=== PATIENT | male | born 1980 | race Caucasian/White ===

== ENCOUNTER 2016-10-09 18:18 | Emergency (ER) | payer BC ==
[2016-10-09] MEDS ORDERED: Proparacaine 0.5% Ophth Soln 15 ML Bottle ONE (18:24)
[2016-10-09] MEDS ORDERED: Proparacaine 0.5% Ophth Soln 15 ML Bottle EYERT STA (18:25)
--- NOTE | 2016-10-09 18:30 | EDM.PDOC ---
ED HPI GENERAL MEDICAL PROBLEM - General Chief Complaint: Eye Problems Stated Complaint: PAIN RT EYE Time Seen by Provider: 10/09/16 18:27 - History of Present Illness INITIAL COMMENTS - FREE TEXT/NARRATIVE: HISTORY AND PHYSICAL: History of present illness: Patient 36-year-old white male presents with concern of irritation and redness to his right eye he states he developed this earlier he has contact lenses he did remove his contact lenses and did flush his eye he states he still is irritation and is concerned for possible foreign body. There was no foreign body history or any direct trauma to his eye Review of systems: As per history of present illness and below otherwise all systems reviewed and negative. Past medical history: As per history of present illness and as reviewed below otherwise noncontributory. Surgical history: As per history of present illness and as reviewed below otherwise noncontributory. Social history: No reported history of drug or alcohol abuse. Family history: As per history of present illness and as reviewed below otherwise noncontributory. Physical exam: HEENT: Atraumatic, normocephalic, pupils reactive, conjunctiva is injected staining of his eye does have forcing uptake in the bulbar conjunctiva inferiorly foreign body search including lid eversion was negative anterior chambers clear negative for conjunctival pallor or scleral icterus, mucous membranes moist, throat clear, neck supple, nontender, trachea midline. Lungs: Clear to auscultation, breath sounds equal bilaterally, chest nontender. Heart: S1S2, regular, negative for clicks, rubs, or JVD. Abdomen: Soft, nondistended, nontender. Negative for masses or hepatosplenomegaly. Negative for costovertebral tenderness. Pelvis: Stable nontender. Genitourinary: Deferred. Rectal: Deferred. Extremities: Atraumatic, negative for cords or calf pain. Neurovascular unremarkable. Neuro: Awake, alert, oriented. Cranial nerves II through XII unremarkable. Cerebellum unremarkable. Motor and sensory unremarkable throughout. Exam nonfocal. Diagnostics: Corneal staining Therapeutics: Irrigation proparacaine erythromycin ophthalmic ointment Impression: #1 conjunctivitis Definitive disposition and diagnosis as appropriate pending reevaluation and review of above. - Related Data Allergies Allergy/AdvReac Type Severity Reaction Status Date / Time No Known Allergies Allergy Verified 01/16/14 10:26 Home Meds: Home Meds . [No Known Home Meds] 01/16/14 [History] Past Medical History - Past Health History Medical/Surgical History: Denies Medical/Surgical History Social & Family History - Tobacco Use Smoking Status *Q: Current Every Day Smoker Years of Tobacco use: 15 - Alcohol Use Days Per Week of Alcohol Use: 3 Number of Drinks Per Day: 5 Total Drinks Per Week: 15 - Recreational Drug Use Recreational Drug Use: No ED ROS GENERAL - Review of Systems Review Of Systems: ROS reveals no pertinent complaints other than HPI. ED EXAM GENERAL W FULL EYE - Physical Exam Exam: See Below (See dictation) Course - Orders/Labs/Meds Meds: Medications Discontinued Medications Generic Name Dose Route Start Last Admin Trade Name Freamy PRN Reason Stop Dose Admin Proparacaine HCl 1 ml 10/09/16 18:25 Proparacaine 0.5% Ophth Soln EYERT 10/09/16 18:26 NOW STA Departure - Departure Time of Disposition: 18:29 Disposition: Home, Self-Care 01 Condition: Good Clinical Impression: Conjunctivitis - Discharge Information Referrals: PCP,None [Primary Care Provider] - Additional Instructions: The following information is given to patients seen in the emergency department who are being discharged to home. This information is to outline your options for follow-up care. We provide all patients seen in our emergency department with a follow-up referral. The need for follow-up, as well as the timing and circumstances, are variable depending upon the specifics of your emergency department visit. If you don't have a primary care physician on staff, we will provide you with a referral. We always advise you to contact your personal physician following an emergency department visit to inform them of the circumstance of the visit and for follow-up with them and/or the need for any referrals to a consulting specialist. The emergency department will also refer you to a specialist when appropriate. This referral assures that you have the opportunity for followup care with a specialist. All of these measure are taken in an effort to provide you with optimal care, which includes your followup. Under all circumstances we always encourage you to contact your private physician who remains a resource for coordinating your care. When calling for followup care, please make the office aware that this follow-up is from your recent emergency room visit. If for any reason you are refused follow-up, please contact the [facility] emergency department at and asked to speak to the emergency department charge nurse. Erythromycin ophthalmic ointment as prescribed no contact lenses as discussed until resolution and ophthalmology follow-up follow-up private medical doctor/ ophthalmology 24-48 hours as needed as discussed and return as needed as discussed
[2016-10-09] MEDS ORDERED: Erythromycin Base 0.5% Ophth Oint 1 GM Tube EYERT ONE (18:31)
[2016-10-09 18:35] VITALS: BP 131/82
== END 2016-10-09 18:48 | disposition home or self-care (01) ==
LOC: MW.ED 18:18
DX: H10.9 Unspecified conjunctivitis (principal); F17.200 Nicotine dependence, unspecified, uncomplicated
CPT/HCPCS: 99283; A9270; 99282

== ENCOUNTER 2016-11-30 16:22 | Emergency (ER) | payer BC ==
[2016-11-30 16:40] VITALS: BP 135/84
[2016-11-30] MEDS ORDERED: Lidocaine 1% 20 ML MDV INJECT ONE (16:46)
--- NOTE | 2016-11-30 16:50 | EDM.PDOC ---
ED HPI GENERAL MEDICAL PROBLEM - General Chief Complaint: Laceration Stated Complaint: LACERATION LIP Time Seen by Provider: 11/30/16 16:41 Source of Information: Reports: Patient History Limitations: Reports: No Limitations - History of Present Illness INITIAL COMMENTS - FREE TEXT/NARRATIVE: HISTORY AND PHYSICAL: History of present illness: Patient is a 36 -year-old male who presents to the emergency room with complaints of laceration to the left upper lip. Patient was pulling on a hose and it flung back and hit him in the mouth is eating a 0.6 cm laceration to the left upper lip that barely crosses the [place] border. Patient states he also has the tooth but is unable to wiggle it with his tongue. Denies any loss of consciousness. T Benoit was updated 2 years ago Review of systems: As per history of present illness and below otherwise all systems reviewed and negative. Past medical history: As per history of present illness and as reviewed below otherwise noncontributory. Surgical history: As per history of present illness and as reviewed below otherwise noncontributory. Social history: No reported history of drug or alcohol abuse. Family history: As per history of present illness and as reviewed below otherwise noncontributory. Physical exam: Gen.: Well-developed and well-nourished 36-year-old male. Able to speak in full sentences without shortness of breath. Alert and oriented HEENT: Atraumatic, normocephalic, pupils reactive, negative for conjunctival pallor or scleral icterus, mucous membranes moist, all teeth intact, throat clear, neck supple, nontender, trachea midline. Lungs: Clear to auscultation, breath sounds equal bilaterally, chest nontender. Heart: S1S2, regular, negative for clicks, rubs, or JVD. Abdomen: Soft, nondistended, nontender. Negative for masses or hepatosplenomegaly. Negative for costovertebral tenderness. Pelvis: Stable nontender. Genitourinary: Deferred. Rectal: Deferred. Skin: 0.6 laceration to left upper lip which barely crosses the [place] border. No current bleeding noted. No other abrasions or skin imperfections noted to the face. Extremities: Atraumatic, negative for cords or calf pain. Neurovascular unremarkable. Neuro: Awake, alert, oriented. Cranial nerves II through XII unremarkable. Cerebellum unremarkable. Motor and sensory unremarkable throughout. Exam nonfocal. Diagnostics: [] Therapeutics: Lidocaine, 5-0 Vicryl P-3 was used, #1 stitch completed Impression: Lip laceration Plan: 1. Please take your antibiotic as prescribed. Monitor for signs of infection as we discussed. Take Tylenol and/or ibuprofen as needed for pain management. 2. The stitch will dissolve on its own over the next couple days. Please do not chew or tug on the thread. 3. Follow-up with your primary care provider in the next 1-2 days area and return to the ED as needed as discussed Definitive disposition and diagnosis as appropriate pending reevaluation and review of above. Onset: Today Left Upper Lip Pain Score (Numeric/FACES): 2 - Related Data Allergies Allergy/AdvReac Type Severity Reaction Status Date / Time No Known Allergies Allergy Verified 01/16/14 10:26 Home Meds: Home Meds . [No Known Home Meds] 01/16/14 [History] Past Medical History - Past Health History Medical/Surgical History: Denies Medical/Surgical History - Past Surgical History Other Musculoskeletal Surgeries/Procedures:: Right wrist pain with fracture Social & Family History - Family History Family Medical History: Noncontributory - Tobacco Use Smoking Status *Q: Current Every Day Smoker Years of Tobacco use: 15 Packs/Tins Daily: 1 Second Hand Smoke Exposure: Yes - Caffeine Use Caffeine Use: Reports: Coffee - Alcohol Use Days Per Week of Alcohol Use: 3 Number of Drinks Per Day: 5 Total Drinks Per Week: 15 - Recreational Drug Use Recreational Drug Use: No ED ROS GENERAL - Review of Systems Review Of Systems: ROS reveals no pertinent complaints other than HPI. ED EXAM, SKIN/RASH Exam: See Below Course - Vital Signs Last Recorded V/S: Last Vital Signs Temp 36.3 C 11/30/16 16:38 Pulse 87 11/30/16 16:38 Resp 18 11/30/16 16:38 BP 135/84 11/30/16 16:38 Pulse Ox 97 11/30/16 16:38 - Orders/Labs/Meds Meds: Medications Discontinued Medications Generic Name Dose Route Start Last Admin Trade Name Freq PRN Reason Stop Dose Admin Lidocaine HCl 20 ml 11/30/16 16:46 Xylocaine 1% INJECT 11/30/16 16:47 ONETIME ONE Departure - Departure Time of Disposition: 17:05 Disposition: Home, Self-Care 01 Condition: Good Clinical Impression: Lip laceration Qualifiers: Encounter type: initial encounter Qualified Code(s): S01.511A - Laceration without foreign body of lip, initial encounter - Discharge Information Referrals: PCP,None [Primary Care Provider] - Forms: ED Department Discharge Additional Instructions: My general discharge The following information is given to patients seen in the emergency department who are being discharged to home. This information is to outline your options for follow-up care. We provide all patients seen in our emergency department with a follow-up referral. The need for follow-up, as well as the timing and circumstances, are variable depending upon the specifics of your emergency department visit. If you don't have a primary care physician on staff, we will provide you with a referral. We always advise you to contact your personal physician following an emergency department visit to inform them of the circumstance of the visit and for follow-up with them and/or the need for any referrals to a consulting specialist. The emergency department will also refer you to a specialist when appropriate. This referral assures that you have the opportunity for follow-up care with a specialist. All of these measure are taken in an effort to provide you with optimal care, which includes your follow-up. Under all circumstances we always encourage you to contact your private physician who remains a resource for coordinating your care. When calling for follow-up care, please make the office aware that this follow-up is from your recent emergency room visit. If for any reason you are refused follow-up, please contact the [facility] Emergency Department at and asked to speak to the emergency department charge nurse. [facility] [address] [place] [id number] 1. Please take your antibiotic as prescribed ([facility]). Monitor for signs of infection as we discussed. Take Tylenol and/or ibuprofen as needed for pain management. 2. The stitch will dissolve on its own over the next couple days. Please do not chew or tug on the thread. 3. Follow-up with your primary care provider in the next 1-2 days area and return to the ED as needed as discussed
== END 2016-11-30 17:14 | disposition home or self-care (01) ==
LOC: MW.ED 16:22
DX: S01.511A Laceration without foreign body of lip, initial encounter (principal); W22.8XXA Striking against or struck by other objects, initial encounter
CPT/HCPCS: 12011; 99282; 99283

== ENCOUNTER 2019-03-08 18:31 | Observation (INO) | payer OTHER ==
[2019-03-08] MEDS ORDERED: HYDROmorphone 1 MG/ML Syringe IVPUSH ONE ×2 (19:00→21:01)
[2019-03-08 19:16] LABS: BLOOD UREA NITROGEN,BUN 15 mg/dL (7.0-18.0); CARBON DIOXIDE,CO2 27.3 mmol/L (21.0-32.0); CHLORIDE,CL 103 mmol/L (98-107); GLUCOSE RANDOM 110 mg/dL (74-106); POTASSIUM,K 3.5 mmol/L (3.5-5.1); SODIUM,NA 142 mmol/L (136-148)
--- NOTE | 2019-03-08 19:31 | CR ---
Pelvis: AP view of the pelvis was obtained. Comparison: No previous pelvis study. Mild joint space narrowing is seen within the superior right hip. Detached superior acetabular lip is noted on the left side which is old and a normal variant. Sacroiliac joints are unremarkable. No discrete fracture or other abnormality is appreciated. Impression: 1. Mild joint space narrowing with right hip. 2. Nothing acute is seen on AP pelvis study. Diagnostic code #2 This report was dictated in [place] Standard Time
--- NOTE | 2019-03-08 19:31 | CR ---
Lumbar spine: Crosstable lateral view of the lumbar spine were obtained. Mild posterior disc space narrowing at L4-5 and L5-S1. Other disc spaces are grossly maintained. Vertebral body heights are maintained. No abnormal subluxation is appreciated. Impression: 1. Posterior disc space narrowing. 2. No abnormal subluxation is seen on crosstable lateral view. Diagnostic code #2 This report was dictated in [place] Standard Time
[2019-03-08] MEDS ORDERED: Iopamidol 755 MG/ML 200 ML Multipack Bottle IVPUSH ONE (19:34)
--- NOTE | 2019-03-08 20:11 | CT ---
CT abdomen and pelvis Technique: Multiple axial sections were obtained from above the dome of the diaphragm inferiorly through the pubic symphysis. Intravenous contrast was utilized. No oral contrast has been given. Comparison: No prior CT abdomen or pelvis study. Findings: Visualized lung bases show nothing acute. Liver contains no focal abnormality. Spleen appears within normal limits. Adrenal glands show no nodule. Pancreas is within normal limits. Kidneys show symmetric contrast enhancement without abnormality. Gallbladder contains no calcified gallstones. Aorta shows no aneurysm. No retroperitoneal adenopathy or mesenteric abnormalities are seen. Mild increased density is noted along the right side of the pelvis compatible with mild intrapelvic hematoma from adjacent pelvic fractures which will be described below. No additional pelvic abnormality is seen. Bone window settings were reviewed. Fracture is identified within the superior pubic ramus on the right side near the acetabulum which is minimally displaced. Inferior pubic ramus fracture on the right side which is minimally displaced. Fracture also noted within the right side of the sacrum near the sacroiliac joint. Fracture also noted within the posterior iliac bone along the posterior sacroiliac joint which is slightly comminuted but nondisplaced. No left-sided pelvic fracture is seen. No discrete fracture within the lumbar spine is noted. Impression: 1. Fracture within the superior right pubic ramus near the acetabulum. Fracture also noted within the inferior right pubic ramus. Minimal displacement noted. 2. Fracture within the right side of the sacrum near the the sacroiliac joint. 3. Fracture within the iliac bone along the posterior sacroiliac joint which is slightly comminuted but nondisplaced. 4. Mild intrapelvic hematoma on the right side. 5. No additional abnormality is seen on CT study of the abdomen and pelvis. Note: When comparing CT study to previous AP pelvis study the inferior and superior pubic rami fractures are seen in retrospect but other fractures around the right sacroiliac joint are not well seen even in retrospect. Diagnostic code #3 Study was dictated in [place] Standard Time
[2019-03-08] MEDS ORDERED: ceFAZolin 1 GM in Premix Bag 1 BAG IV ONE (21:09)
[2019-03-08] MEDS: Lactated Ringers 1,000 ML IV SCH (21:45)
[2019-03-08] MEDS ORDERED: Morphine 10 MG/ML Syringe IVPUSH PRN (21:51)
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
[2019-03-08] MEDS: Cyclobenzaprine 10 MG Tab PO SCH (23:04)
[2019-03-09] MEDS: Acetaminophen/HYDROcodone 325-5 MG Tab PO PRN ×2 (02:08→08:46)
[2019-03-09] MEDS: Lactated Ringers 1,000 ML IV SCH (03:53)
[2019-03-09 05:53] LABS: BLOOD UREA NITROGEN,BUN 13 mg/dL (7.0-18.0); CARBON DIOXIDE,CO2 27.1 mmol/L (21.0-32.0); CHLORIDE,CL 106 mmol/L (98-107); GLUCOSE RANDOM 108 mg/dL (74-106); POTASSIUM,K 3.4 mmol/L (3.5-5.1); SODIUM,NA 141 mmol/L (136-148)
[2019-03-09] MEDS: Cyclobenzaprine 10 MG Tab PO SCH (06:04)
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
[2019-03-09 08:07] VITALS: BP 126/72; PULSE 85
[2019-03-09] MEDS ORDERED: FLU Vacc QS2019-20(6MOS+)/PF 60 MCG/0.5 ML SYRINGE IM ONE (10:00)
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
== END 2019-03-09 11:15 | disposition home or self-care (01) ==
LOC: MW.ED 18:31 → MW.MS 22:04
PROVIDERS: ADMIT Surgery; ATTEND Surgery
DX: S32.592A Other specified fracture of left pubis, initial encounter for closed fracture (principal); S32.591A Other specified fracture of right pubis, initial encounter for closed fracture; N50.1 Vascular disorders of male genital organs; K21.9 Gastro-esophageal reflux disease without esophagitis; F17.210 Nicotine dependence, cigarettes, uncomplicated; V04.90XA Pedestrian on foot injured in collision with heavy transport vehicle or bus, unspecified whether traffic or nontraffic accident, initial encounter; Z91.048 Other nonmedicinal substance allergy status
CPT/HCPCS: 36415; 72020; 72020-26; 72170; 72170-26; 74177; 74177-26; 80048; 81003; 85025; 85610; 86850; 86900; 86901; 90686; 96361; 96374; 96376; 97161-GP; 99284; 99285-25; A9270-GY; G0008; G0378; J1170; J7120; Q9967